=== PATIENT | female | born 1975 | race Caucasian/White ===

== ENCOUNTER 2024-02-23 23:41 | Emergency (ER) | payer OTHER ==
[~2024-02-23] VITALS: Ht 165.1 cm; Wt 52.0 kg
[2024-02-23 23:49] VITALS: PULSE 84; O2SAT 99
[2024-02-24] MEDS ORDERED: ACETAMINOPHEN 325MG TABLET PO ONE
[2024-02-24 00:22] LABS: HEMATOCRIT. 34.5 % (36.0-48.0); MEAN CORPUSCULAR HEMOGLOBIN 26.4 pg (28.0-32.0); MEAN CORPUSCULAR HGB CONC 31.9 g/dL (31.0-37.0); MEAN CORPUSCULAR VOLUME 82.7 fL (81.0-99.0); MEAN PLATELET VOLUME 7.3 fl (7.4-10.4); PLATELET 366 x1000/uL (130-400); RED BLOOD CELL COUNT 4.17 mill/uL (4.2-5.4); RED CELL DISTRIBUTION WIDTH 16.1 % (11.6-14.6)
[2024-02-24 00:26] LABS: CHLORIDE 108 mEq/L (98-107); POTASSIUM 3.8 mEq/L (3.5-5.1); SODIUM 139 mEq/L (136-145)
[2024-02-24 00:27] LABS: CALCIUM 9.4 mg/dL (8.7-10.4); CARBON DIOXIDE 25 mEq/L (21-32)
[2024-02-24 00:31] LABS: DIFFERENTIAL COMMENT 1
[2024-02-24 00:32] LABS: CREATININE 0.9 mg/dL (0.6-1.0); GLUCOSE 121 mg/dL (70-105); UREA NITROGEN BLOOD 24 mg/dL (9-23)
[2024-02-24 00:54] VITALS: BP 138/80; RESP 16; TEMP 97.9
[2024-02-24] MEDS: LIDOCAINE 5% PATCH TOP SCH (00:54)
[2024-02-24] MEDS: ACETAMINOPHEN 325MG TABLET PO NR (00:54)
[2024-02-24 00:55] LABS: PLATELET ESTIMATE NORMAL
[2024-02-24 00:56] LABS: OVALOCYTES 1+; TEAR DROP CELLS 2+
[2024-02-24 02:26] LABS: CLARITY URINE CLEAR (CLEAR); COLOR URINE YELLOW (YELLOW); GLUCOSE URINE NEGATIVE (NEGATIVE); KETONES URINE NEGATIVE (NEGATIVE); LEUKOCYTE ESTERASE URINE TRACE (NEGATIVE); NITRITE URINE NEGATIVE (NEGATIVE); OCCULT BLOOD URINE 2+ (NEGATIVE); PH URINE 5.5 (4.5-8.0); PROTEIN URINE TRACE (NEGATIVE)
[2024-02-24 02:32] LABS: CREATINE KINASE 30 IU/L (34-145); LACTIC ACID 2.1 mmol/L (0.4-2.0)
[2024-02-24 02:35] LABS: *AMPHETAMINES SCREEN URINE PRESUMPTIVE POSITIVE (NEGATIVE); *BARBITURATES SCREEN URINE NEGATIVE (NEGATIVE); *BENZODIAZEPINES SCREEN URINE NEGATIVE (NEGATIVE); *COCAINE SCREEN URINE NEGATIVE (NEGATIVE); CANNABINOID URINE SCREEN PRESUMPTIVE POSITIVE (NEGATIVE); ECSTASY MDMA SCREEN URINE CONF.TEST INDICATED (NEGATIVE); METHADONE URINE SCREEN NEGATIVE (NEGATIVE); OPIATES URINE SCREEN NEGATIVE (NEGATIVE); PHENCYCLIDINE URINE SCREEN NEGATIVE (NEGATIVE)
[2024-02-24 02:40] LABS: ETHANOL BLOOD < 10 mg/dL (<10)
[2024-02-24] MEDS ORDERED: BACL-141 MT (03:03)
[2024-02-24] MEDS ORDERED: ACET-2708 MT (03:03)
[2024-02-24 03:45] LABS: BACTERIA URINE TRACE; SQUAMOUS EPITHELIAL CELL URINE 1+ /lpf (RARE/1+)
== END 2024-02-24 05:20 | disposition home or self-care (01) ==
LOC: ER 23:56
DX: R10.9 Unspecified abdominal pain (principal); F19.90 Other psychoactive substance use, unspecified, uncomplicated; Z00.00 Encounter for general adult medical examination without abnormal findings
CPT/HCPCS: 36415; 80048; 80305; 80320; 81003; 82550; 83605; 84145; 85025; 99283; G0480